=== PATIENT | female | born 1990 | race African-American/Black ===

== ENCOUNTER 2017-12-27 08:52 | Emergency (ER) | payer MEDICAID ==
[~2017-12-27] VITALS: Ht 157.5 cm; Wt 54.0 kg
[2017-12-27] MEDS ORDERED: ONDANSETRON 4MG ODT PO STA (10:09)
[2017-12-27] MEDS ORDERED: MAGNESIUM/ALUMINUM HYDROXIDE/SIMETHICONE 30ML UDC PO STA (10:09)
[2017-12-27] MEDS ORDERED: FAMOTIDINE 20MG TABLET PO ONE (10:15)
[2017-12-27 10:42] LABS: BASOPHILS % 0.3 % (0.0-2.0); EOSINOPHILS % 0.9 % (0.0-5.0); HEMATOCRIT. 30.8 % (36.0-48.0); HEMOGLOBIN. 10.6 g/dL (12.0-16.0); LYMPHOCYTES % 23.3 % (20.0-50.0); MEAN CORPUSCULAR HEMOGLOBIN 30.8 pg (28.0-32.0); MEAN CORPUSCULAR VOLUME 89.5 fL (81.0-99.0); MEAN PLATELET VOLUME 7.2 fl (7.4-10.4); NEUTROPHILS % 65.5 % (40.0-76.0); PLATELET 251 x1000/uL (130-400); RED BLOOD CELL COUNT 3.44 mill/uL (4.2-5.4); RED CELL DISTRIBUTION WIDTH 12.7 % (11.6-14.6)
[2017-12-27 10:46] LABS: CLARITY URINE CLOUDY (CLEAR); COLOR URINE YELLOW (YELLOW); KETONES URINE 1+ (NEGATIVE); LEUKOCYTE ESTERASE URINE 1+ (NEGATIVE); NITRITE URINE NEGATIVE (NEGATIVE); OCCULT BLOOD URINE NEGATIVE (NEGATIVE); PH URINE 7.5 (4.5-8.0); PROTEIN URINE NEGATIVE (NEGATIVE); SPECIFIC GRAVITY URINE 1.021 (1.005-1.030)
[2017-12-27 10:49] LABS: CHLORIDE 106 mEq/L (98-107)
[2017-12-27 11:14] LABS: B-HCG QUANTITATIVE 19699 mIU/mL (<3)
[2017-12-27 12:10] VITALS: BP 96/67
== END 2017-12-27 12:15 | disposition home or self-care (01) ==
LOC: ER 08:52
DX: O23.41 Unspecified infection of urinary tract in pregnancy, first trimester (principal); O99.011 Anemia complicating pregnancy, first trimester; O26.891 Other specified pregnancy related conditions, first trimester; R10.13 Epigastric pain; Z3A.01 Less than 8 weeks gestation of pregnancy
CPT/HCPCS: 36415; 76700; 76801; 80053; 81003; 81025; 83690; 84702; 85025; 99285; Q0162

== ENCOUNTER 2020-04-27 11:54 | Emergency (ER) | payer MEDICAID ==
[~2020-04-27] VITALS: Ht 157.5 cm; Wt 55.0 kg
[2020-04-27 12:45] LABS: BASOPHILS % 0.5 % (0.0-2.0); EOSINOPHILS % 1.3 % (0.0-5.0); HEMATOCRIT. 37.1 % (36.0-48.0); HEMOGLOBIN. 12.3 g/dL (12.0-16.0); LYMPHOCYTES % 20.8 % (20.0-50.0); MEAN CORPUSCULAR VOLUME 90.8 fL (81.0-99.0); MEAN PLATELET VOLUME 6.9 fl (7.4-10.4); MONOCYTES % 11.2 % (2.0-8.0); NEUTROPHILS % 66.2 % (40.0-76.0); PLATELET 292 x1000/uL (130-400); RED BLOOD CELL COUNT 4.08 mill/uL (4.2-5.4); RED CELL DISTRIBUTION WIDTH 12.8 % (11.6-14.6)
[2020-04-27 12:56] LABS: CHLORIDE 104 mEq/L (98-107)
[2020-04-27 13:05] LABS: CLARITY URINE CLEAR (CLEAR); COLOR URINE YELLOW (YELLOW); KETONES URINE TRACE (NEGATIVE); LEUKOCYTE ESTERASE URINE 2+ (NEGATIVE); NITRITE URINE NEGATIVE (NEGATIVE); OCCULT BLOOD URINE NEGATIVE (NEGATIVE); PROTEIN URINE NEGATIVE (NEGATIVE); SPECIFIC GRAVITY URINE 1.018 (1.005-1.030); UROBILINOGEN URINE 0.2 E.U./dL (0.2-1.0)
[2020-04-27 13:09] LABS: HCG SCREEN POSITIVE
[2020-04-27] MEDS ORDERED: HYDROCODONE/ACETAMINOPHEN 5/325MG TABLET PO ONE (16:30)
[2020-04-27] MEDS ORDERED: HYDR-4346 MT (16:32)
[2020-04-27 17:47] VITALS: BP 107/66
[2020-05-02] MEDS ORDERED: IBUP-2030 MT (09:14)
== END 2020-04-27 17:49 | disposition home or self-care (01) ==
LOC: ER 11:54
DX: O34.81 Maternal care for other abnormalities of pelvic organs, first trimester (principal); N83.202 Unspecified ovarian cyst, left side; Z3A.01 Less than 8 weeks gestation of pregnancy
CPT/HCPCS: 36415; 76801; 80053; 81003; 81025; 84702; 84703; 85025; 86850; 86900; 93005; 99285

== ENCOUNTER 2020-08-01 12:26 | Emergency (ER) | payer MEDICAID ==
[~2020-08-01] VITALS: Ht 165.1 cm; Wt 59.0 kg
[~2020-08-01 12:26] MED LIST: IBUP-2030 MT
[2020-08-01] MEDS ORDERED: KETOROLAC 30MG/ML VIAL IV STA (13:08)
[2020-08-01 13:10] LABS: CLARITY URINE CLEAR (CLEAR); COLOR URINE YELLOW (YELLOW); KETONES URINE NEGATIVE (NEGATIVE); LEUKOCYTE ESTERASE URINE NEGATIVE (NEGATIVE); NITRITE URINE NEGATIVE (NEGATIVE); OCCULT BLOOD URINE NEGATIVE (NEGATIVE); PROTEIN URINE NEGATIVE (NEGATIVE); SPECIFIC GRAVITY URINE 1.027 (1.005-1.030); UROBILINOGEN URINE 0.2 E.U./dL (0.2-1.0)
[2020-08-01] MEDS ORDERED: SODIUM CHLORIDE 0.9% 1,000 ML IV ONE (13:15)
[2020-08-01] MEDS ORDERED: ONDANSETRON HCL 4MG/2ML INJ IV ONE (13:15)
[2020-08-01 13:28] LABS: BASOPHILS % 0.6 % (0.0-2.0); EOSINOPHILS % 1.9 % (0.0-5.0); HEMATOCRIT. 36.8 % (36.0-48.0); HEMOGLOBIN. 12.5 g/dL (12.0-16.0); LYMPHOCYTES % 24.6 % (20.0-50.0); MEAN CORPUSCULAR HEMOGLOBIN 30.6 pg (28.0-32.0); MEAN PLATELET VOLUME 7.2 fl (7.4-10.4); MONOCYTES % 9.2 % (2.0-8.0); NEUTROPHILS % 63.7 % (40.0-76.0); PLATELET 279 x1000/uL (130-400); RED BLOOD CELL COUNT 4.09 mill/uL (4.2-5.4); RED CELL DISTRIBUTION WIDTH 13.2 % (11.6-14.6)
[2020-08-01 13:36] LABS: CHLORIDE 104 mEq/L (98-107)
[2020-08-01] MEDS ORDERED: IBUP-2028 MT (16:03)
[2020-08-01 17:14] VITALS: BP 109/80
[2020-08-01] MEDS ORDERED: IOHEXOL-300 100 ML BOTTLE ONE (21:01)
== END 2020-08-01 17:37 | disposition home or self-care (01) ==
LOC: ER 12:26
DX: D25.9 Leiomyoma of uterus, unspecified (principal); Z98.890 Other specified postprocedural states
CPT/HCPCS: 36415; 74177; 76830; 76856; 80053; 81003; 81025; 83690; 85025; 93005; 96361; 96374; 96375; 99285; J1885; J2405; J7030; Q9967

== ENCOUNTER 2020-11-11 15:22 | Emergency (ER) | payer MEDICAID ==
[~2020-11-11] VITALS: Ht 177.8 cm; Wt 56.0 kg
[~2020-11-11 15:22] MED LIST changes: +IBUP-2028 MT
[2020-11-11 15:23] VITALS: BP 148/80
== END 2020-11-11 17:58 | disposition left against medical advice (07) ==
LOC: ER 15:31
DX: Z53.21 Procedure and treatment not carried out due to patient leaving prior to being seen by health care provider (principal)
CPT/HCPCS: 81025

== ENCOUNTER 2021-06-06 09:13 | Emergency (ER) | payer MEDICAID ==
[~2021-06-06] VITALS: Ht 157.5 cm; Wt 56.0 kg
[2021-06-06] MEDS ORDERED: ACETAMINOPHEN 325MG TABLET PO ONE (12:00)
[2021-06-06] MEDS ORDERED: IBUPROFEN 400MG TABLET PO ONE (12:00)
[2021-06-06 12:13] LABS: BASOPHILS % 0.3 % (0.0-2.0); EOSINOPHILS % 1.6 % (0.0-5.0); HEMATOCRIT. 37.4 % (36.0-48.0); HEMOGLOBIN. 12.4 g/dL (12.0-16.0); LYMPHOCYTES % 22.2 % (20.0-50.0); MEAN CORPUSCULAR HEMOGLOBIN 29.6 pg (28.0-32.0); MEAN CORPUSCULAR VOLUME 89.1 fL (81.0-99.0); MEAN PLATELET VOLUME 7.3 fl (7.4-10.4); MONOCYTES % 14.1 % (2.0-8.0); NEUTROPHILS % 61.8 % (40.0-76.0); PLATELET 281 x1000/uL (130-400); RED CELL DISTRIBUTION WIDTH 13.2 % (11.6-14.6)
[2021-06-06 12:15] LABS: CHLORIDE 107 mEq/L (98-107)
[2021-06-06 12:44] LABS: HCG SCREEN NEGATIVE
[2021-06-06 16:20] LABS: CLARITY URINE CLEAR (CLEAR); COLOR URINE YELLOW (YELLOW); KETONES URINE NEGATIVE (NEGATIVE); LEUKOCYTE ESTERASE URINE TRACE (NEGATIVE); NITRITE URINE NEGATIVE (NEGATIVE); OCCULT BLOOD URINE 3+ (NEGATIVE); PROTEIN URINE NEGATIVE (NEGATIVE); SPECIFIC GRAVITY URINE 1.019 (1.005-1.030); UROBILINOGEN URINE 0.2 E.U./dL (0.2-1.0)
[2021-06-06 18:06] VITALS: BP 92/54
== END 2021-06-06 18:12 | disposition home or self-care (01) ==
LOC: ER 09:13
DX: R10.84 Generalized abdominal pain (principal); Z98.890 Other specified postprocedural states
CPT/HCPCS: 36415; 76770; 76856; 80048; 80076; 81003; 81025; 84703; 85025; 99285

== ENCOUNTER 2021-11-03 08:51 | Emergency (ER) | payer MEDICAID ==
[~2021-11-03] VITALS: Ht 157.5 cm; Wt 60.0 kg
[2021-11-03 08:56] VITALS: BP 115/85
== END 2021-11-03 11:33 | disposition left against medical advice (07) ==
LOC: ER 08:59
DX: Z53.21 Procedure and treatment not carried out due to patient leaving prior to being seen by health care provider (principal)

== ENCOUNTER 2022-05-22 03:40 | Emergency (ER) | payer MEDICAID ==
[~2022-05-22] VITALS: Ht 157.5 cm; Wt 59.0 kg
[2022-05-22 03:49] VITALS: BP 115/78
[2022-05-22] MEDS ORDERED: CYCLOBENZAPRINE 10MG TABLET PO ONE (04:30)
[2022-05-22] MEDS ORDERED: FAMOTIDINE 20MG TABLET PO ONE (04:30)
[2022-05-22] MEDS ORDERED: CYCL10TA21 MT (05:24)
[2022-05-22] MEDS ORDERED: FAMO-135 MT (05:24)
== END 2022-05-22 05:45 | disposition home or self-care (01) ==
LOC: ER 03:40
DX: J02.9 Acute pharyngitis, unspecified (principal); Z98.890 Other specified postprocedural states
CPT/HCPCS: 71045; 81025; 99283

== ENCOUNTER 2022-09-08 06:18 | Emergency (ER) | payer MEDICAID ==
[~2022-09-08] VITALS: Ht 157.5 cm; Wt 61.7 kg
[~2022-09-08 06:18] MED LIST changes: +CYCL10TA21 MT; +FAMO-135 MT
[2022-09-08] MEDS ORDERED: SODIUM CHLORIDE 0.9% 1,000 ML IV ONE (08:00)
[2022-09-08 09:11] LABS: BASOPHILS % 0.4 % (0.0-2.0); EOSINOPHILS % 1.3 % (0.0-5.0); HEMATOCRIT. 37.2 % (36.0-48.0); HEMOGLOBIN. 12.7 g/dL (12.0-16.0); LYMPHOCYTES % 20.3 % (20.0-50.0); MEAN CORPUSCULAR HEMOGLOBIN 31.5 pg (28.0-32.0); MEAN PLATELET VOLUME 7.1 fl (7.4-10.4); MONOCYTES % 8.6 % (2.0-8.0); NEUTROPHILS % 69.4 % (40.0-76.0); PLATELET 284 x1000/uL (130-400); RED BLOOD CELL COUNT 4.05 mill/uL (4.2-5.4); RED CELL DISTRIBUTION WIDTH 12.9 % (11.6-14.6)
[2022-09-08 09:15] LABS: CHLORIDE 108 mEq/L (98-107)
[2022-09-08] MEDS ORDERED: METOCLOPRAMIDE HCL 10MG/2ML VIAL IV ONE (09:45)
[2022-09-08] MEDS ORDERED: KETOROLAC 30MG/ML VIAL IV ONE (09:45)
[2022-09-08 09:55] LABS: CLARITY URINE CLOUDY (CLEAR); COLOR URINE YELLOW (YELLOW); KETONES URINE NEGATIVE (NEGATIVE); LEUKOCYTE ESTERASE URINE 3+ (NEGATIVE); NITRITE URINE NEGATIVE (NEGATIVE); OCCULT BLOOD URINE NEGATIVE (NEGATIVE); PROTEIN URINE NEGATIVE (NEGATIVE); SPECIFIC GRAVITY URINE 1.012 (1.005-1.030); UROBILINOGEN URINE 0.2 E.U./dL (0.2-1.0)
[2022-09-08] MEDS ORDERED: NITR100C PO (09:58)
[2022-09-08] MEDS ORDERED: TOPUD PO (10:01)
[2022-09-08 11:07] VITALS: BP 121/86
== END 2022-09-08 11:09 | disposition home or self-care (01) ==
LOC: ER 06:18
DX: N39.0 Urinary tract infection, site not specified (principal); R51.9 Headache, unspecified; Z98.890 Other specified postprocedural states; Z79.899 Other long term (current) drug therapy
CPT/HCPCS: 36415; 80053; 81003; 81025; 85025; 87086; 96361; 96374; 96375; 99284; J1885; J2765; J7030; Z7610